=== PATIENT | male | born 1960 | race Caucasian/White ===

== ENCOUNTER 2020-05-11 18:01 | Observation (INO) ==
[2020-05-11] MEDS ORDERED: Acetaminophen 325 MG TABLET PO PRN (19:57)
[2020-05-11] MEDS ORDERED: Naloxone 0.4 MG/ML INJ IVP PRN (19:57)
[2020-05-11] MEDS ORDERED: Dextrose Gel 15 GM/37.5 ML TUBE PO PRN ×2 (20:00)
[2020-05-11] MEDS ORDERED: *HR* HYDROmorphone PF 0.5 MG/0.5 ML SYRINGE IVP PRN (20:00)
[2020-05-11] MEDS ORDERED: *HR* Dextrose 50 % in Water (Vial) 50 ML VIAL IVP PRN (20:00)
[2020-05-11] MEDS ORDERED: D5% in Water 1,000 ML IVC PRN (20:00)
[2020-05-11] MEDS ORDERED: *HR* Promethazine 25 MG/ML VIAL IVP PRN (20:14)
[2020-05-11] MEDS: Ondansetron 4 MG/2 ML VIAL IVP PRN (20:20)
[2020-05-11] MEDS: 0.9 % Sodium Chloride 1,000 ML IVC SCH (20:21)
[2020-05-11] MEDS: Insulin LISPRO 300 UNITS/3 ML VIAL SQ SCH (23:29)
[2020-05-12] MEDS: 0.9 % Sodium Chloride 1,000 ML IVC SCH ×3 (05:21→21:50)
[2020-05-12] MEDS: Ondansetron 4 MG/2 ML VIAL IVP PRN ×3 (05:21→21:56)
[2020-05-12] MEDS: Pantoprazole 40 MG VIAL IVP SCH ×2 (05:21→17:35)
[2020-05-12 05:32] LABS: Basophils # 0.1 K/mcL (0.0-0.2); Basophils % 0.9 %; Eosinophils # 0.1 K/mcL (0.0-0.6); Eosinophils % 1.1 %; Hematocrit 38.2 % (37.5-50.1); Hemoglobin 12.5 g/dL (12.9-16.9); Immature Granulocytes % 0.3 % (0-4); Lymphocytes # 2.9 K/mcL (0.6-4.6); Lymphocytes % 32.5 %; Mean Corpuscular HGB Conc 32.7 g/dL (31.6-35.5); Mean Corpuscular Volume 88.6 fL (83.0-100.0); Mean Platelet Volume 10.3 fL (9.4-12.4); Monocytes # 0.9 K/mcL (0.0-1.3); Neutrophils # 4.9 K/mcL (1.6-8.9); Platelet Count 209 K/mcL (140-400); Red Blood Count 4.31 M/mcL (4.19-5.50); Red Cell Distribution Width 14.6 % (11.5-14.5); Segmented Neutrophils % 55.2 %; White Blood Count 8.8 K/mcL (4.3-11.1)
[2020-05-12 05:34] LABS: INR 1.2; Prothrombin Time 13.9 Seconds (9.4-12.1)
[2020-05-12 05:50] LABS: BUN/Creatinine Ratio 17 (6-26); Blood Urea Nitrogen 13 mg/dL (6-20); Calcium 8.3 mg/dL (8.6-10.3); Carbon Dioxide 21 mEq/L (23-29); Chloride 105 mEq/L (98-107); Glucose 113 mg/dL (70-105); Magnesium 1.7 mg/dL (1.6-2.6); Osmolality,Calculated 285 (280-300); Phosphorous 2.4 mg/dL (2.7-4.5); Potassium 3.8 mEq/L (3.5-5.1); Sodium 137 mEq/L (136-145); eGFR For African Americans > 60 (> 60); eGFR For Non-African Americans > 60 (> 60)
[2020-05-12] MEDS: Insulin LISPRO 300 UNITS/3 ML VIAL SQ SCH ×3 (08:37→17:27)
[2020-05-12 09:58] LABS: Estimated Average Glucose 134 mg/dl
[2020-05-12] MEDS ORDERED: Insulin DETEMIR 100 UNIT/ML X5UNITS SQ SCH (21:00)
[2020-05-13] MEDS: Pantoprazole 40 MG VIAL IVP SCH ×2 (05:40→18:52)
[2020-05-13] MEDS: Insulin LISPRO 300 UNITS/3 ML VIAL SQ SCH ×3 (08:25→16:06)
[2020-05-13 09:07] LABS: Basophils # 0.1 K/mcL (0.0-0.2); Basophils % 0.8 %; Eosinophils # 0.2 K/mcL (0.0-0.6); Eosinophils % 2.8 %; Hematocrit 42.7 % (37.5-50.1); Hemoglobin 13.4 g/dL (12.9-16.9); Immature Granulocytes % 0.3 % (0-4); Lymphocytes # 1.6 K/mcL (0.6-4.6); Lymphocytes % 21.1 %; Mean Corpuscular HGB Conc 31.4 g/dL (31.6-35.5); Mean Corpuscular Hemoglobin 28.2 pg (28.0-33.3); Mean Corpuscular Volume 89.9 fL (83.0-100.0); Mean Platelet Volume 10.3 fL (9.4-12.4); Monocytes # 0.7 K/mcL (0.0-1.3); Monocytes % 9.4 %; Neutrophils # 5.1 K/mcL (1.6-8.9); Platelet Count 212 K/mcL (140-400); Red Blood Count 4.75 M/mcL (4.19-5.50); Red Cell Distribution Width 14.6 % (11.5-14.5); Segmented Neutrophils % 65.6 %; White Blood Count 7.8 K/mcL (4.3-11.1)
[2020-05-13] MEDS: 0.9 % Sodium Chloride 1,000 ML IVC SCH ×2 (09:12→21:31)
[2020-05-13 09:27] LABS: BUN/Creatinine Ratio 11 (6-26); Blood Urea Nitrogen 9 mg/dL (6-20); Calcium 8.7 mg/dL (8.6-10.3); Carbon Dioxide 24 mEq/L (23-29); Chloride 106 mEq/L (98-107); Glucose 131 mg/dL (70-105); Lipase 6 Units/L (11-82); Osmolality,Calculated 288 (280-300); Potassium 3.7 mEq/L (3.5-5.1); Sodium 139 mEq/L (136-145); eGFR For African Americans > 60 (> 60); eGFR For Non-African Americans > 60 (> 60)
[2020-05-13] MEDS: Ondansetron 4 MG/2 ML VIAL IVP PRN ×2 (12:53→21:30)
[2020-05-14] MEDS: Pantoprazole 40 MG VIAL IVP SCH (05:37)
[2020-05-14 08:27] VITALS: BP 143/86
[2020-05-14] MEDS: Ondansetron 4 MG/2 ML VIAL IVP PRN (08:41)
[2020-05-14] MEDS: Insulin LISPRO 300 UNITS/3 ML VIAL SQ SCH (08:51)
== END 2020-05-14 10:30 | disposition home or self-care (01) ==
LOC: 3ANU → SUATTDRO 19:26
PROVIDERS: ADMIT Student in an Organized Health Care Education/Training Program; ATTEND Family Medicine

== ENCOUNTER 2022-03-03 09:55 | Observation (INO) ==
[2022-03-03] MEDS ORDERED: 0.9 % Sodium Chloride 1,000 ML IVC ONE (11:33)
[2022-03-03] MEDS ORDERED: Ondansetron 4 MG/2 ML VIAL IVP ONE (11:33)
[2022-03-03] MEDS ORDERED: Haloperidol Lactate 5 MG/ML VIAL IVP ONE (11:42)
[2022-03-03 11:52] LABS: Basophils % 0.4 %; Hematocrit 44.8 % (37.5-50.1); Hemoglobin 14.5 g/dL (12.9-16.9); Immature Granulocytes % 0.3 % (0-4); Lymphocytes # 0.8 K/mcL (0.6-4.6); Lymphocytes % 7.9 %; Mean Corpuscular HGB Conc 32.4 g/dL (31.6-35.5); Mean Corpuscular Hemoglobin 28.4 pg (28.0-33.3); Mean Corpuscular Volume 87.8 fL (83.0-100.0); Mean Platelet Volume 10.4 fL (9.4-12.4); Monocytes # 0.3 K/mcL (0.0-1.3); Monocytes % 3.4 %; Neutrophils # 8.5 K/mcL (1.6-8.9); Platelet Count 301 K/mcL (140-400); Red Cell Distribution Width 14.9 % (11.5-14.5); White Blood Count 9.7 K/mcL (4.3-11.1)
[2022-03-03 12:12] LABS: Alanine Aminotransferase 15 Units/L (7-52); Albumin 4.2 g/dL (3.5-5.7); Albumin/Globulin Ratio 1.1 (1.1-2.2); Alkaline Phosphatase 87 Units/L (34-104); Aspartate Amino Transferase 15 Units/L (13-39); BUN/Creatinine Ratio 19 (6-26); Bilirubin,Direct 0.2 mg/dL (0.0-0.2); Bilirubin,Indirect 0.9 mg/dL (0.0-1.0); Bilirubin,Total 1.1 mg/dL (0.3-1.0); Blood Urea Nitrogen 19 mg/dL (8-23); Carbon Dioxide 24 mEq/L (23-29); Chloride 99 mEq/L (98-107); Globulin 3.8 g/dL (2.4-3.5); Glucose 200 mg/dL (70-105); Lipase 5 Units/L (11-82); Osmolality,Calculated 288 (280-300); Potassium 4.2 mEq/L (3.5-5.1); Sodium 135 mEq/L (136-145); eGFR For African Americans > 60 (> 60); eGFR For Non-African Americans > 60 (> 60)
[2022-03-03] MEDS ORDERED: *HR* Promethazine 25 MG/ML VIAL IM ONE (12:14)
[2022-03-03 12:18] LABS: Troponin I < 0.03 ng/mL (< 0.04)
[2022-03-03] MEDS ORDERED: 0.9 % Sodium Chloride 1,000 ML IV ONE (13:52)
[2022-03-03] MEDS ORDERED: Pantoprazole 40 MG VIAL IVP ONE (14:11)
[2022-03-03 14:17] LABS: Bilirubin,Urine Negative (Negative); Blood,Urine Negative (Negative); Clarity,Urine Clear (Clear); Color,Urine Yellow (Yellow); Glucose,Urine (UA) 50 mg/dL (Normal); Ketones,Urine >150 mg/dL (Negative); Leukocyte Esterase,Urine Negative (Negative); Mucus,Urine Few per lpf (None-Few); Nitrite,Urine Negative (Negative); Protein,Urine 50 mg/dL (Neg-Trace); Specific Gravity,Urine > 1.030 (1.010-1.025); Squamous Epithelial Cell,Urine Few per hpf (None-Few); WBC,Urine 0-3 per hpf (0-3)
[2022-03-03] MEDS ORDERED: *HR* Dextrose 50 % in Water (Syg) 50 ML SYRINGE IVP PRN (14:26)
[2022-03-03] MEDS ORDERED: Dextrose Gel 15 GM/37.5 ML TUBE PO PRN ×2 (14:26)
[2022-03-03] MEDS ORDERED: D5% in Water 1,000 ML IVC PRN (14:26)
[2022-03-03] MEDS ORDERED: Naloxone 0.4 MG/ML INJ IVP PRN (14:27)
[2022-03-03] MEDS ORDERED: *HR* Promethazine 25 MG/ML VIAL IM PRN (14:39)
[2022-03-03] MEDS: Ondansetron ODT 4 MG TAB.RAPDIS SL PRN (17:25)
[2022-03-03] MEDS: Insulin LISPRO 300 UNITS/3 ML VIAL SUBQ SCH ×2 (17:26→20:57)
[2022-03-03] MEDS: Ringers Solution, Lactated 1,000 ML IVC SCH (17:27)
[2022-03-03] MEDS: Pantoprazole 40 MG VIAL IVP SCH (21:07)
[2022-03-04 03:37] LABS: BUN/Creatinine Ratio 21 (6-26); Blood Urea Nitrogen 16 mg/dL (8-23); Calcium 8.1 mg/dL (8.6-10.3); Carbon Dioxide 18 mEq/L (23-29); Chloride 105 mEq/L (98-107); Glucose 132 mg/dL (70-105); Magnesium 1.7 mg/dL (1.6-2.6); Osmolality,Calculated 283 (280-300); Phosphorous 2.3 mg/dL (2.7-4.5); Potassium 4.1 mEq/L (3.5-5.1); Sodium 135 mEq/L (136-145); eGFR For African Americans > 60 (> 60); eGFR For Non-African Americans > 60 (> 60)
[2022-03-04] MEDS: Ringers Solution, Lactated 1,000 ML IVC SCH (03:40)
[2022-03-04] MEDS: Ondansetron ODT 4 MG TAB.RAPDIS SL PRN (03:43)
[2022-03-04 04:37] LABS: Basophils % 0.3 %; Hematocrit 39.4 % (37.5-50.1); Hemoglobin 13.2 g/dL (12.9-16.9); Immature Granulocytes % 0.8 % (0-4); Lymphocytes # 1.7 K/mcL (0.6-4.6); Lymphocytes % 10.6 %; Mean Corpuscular HGB Conc 33.5 g/dL (31.6-35.5); Mean Corpuscular Hemoglobin 28.9 pg (28.0-33.3); Mean Corpuscular Volume 86.4 fL (83.0-100.0); Mean Platelet Volume 10.3 fL (9.4-12.4); Monocytes # 1.6 K/mcL (0.0-1.3); Monocytes % 10.3 %; Neutrophils # 12.4 K/mcL (1.6-8.9); Platelet Count 263 K/mcL (140-400); Red Blood Count 4.56 M/mcL (4.19-5.50); White Blood Count 15.9 K/mcL (4.3-11.1)
[2022-03-04 04:38] LABS: Basophils # 0.1 K/mcL (0.0-0.2)
[2022-03-04] MEDS: Insulin LISPRO 300 UNITS/3 ML VIAL SUBQ SCH ×4 (10:17→21:46)
[2022-03-04] MEDS: Pantoprazole 40 MG VIAL IVP SCH ×2 (10:22→21:23)
[2022-03-04] MEDS ORDERED: *HR* HYDROmorphone PF 0.5 MG/0.5 ML SYRINGE IVP PRN (12:34)
[2022-03-04] MEDS ORDERED: Nitroglycerin 0.4 MG TAB.SUBL SL PRN (12:34)
[2022-03-04] MEDS ORDERED: *HR* FentaNYL (PF) 100 MCG/2 ML VIAL IVP PRN (12:34)
[2022-03-04] MEDS ORDERED: Albuterol 2.5 MG/3 ML NEBULIZER IH PRN (12:34)
[2022-03-04] MEDS ORDERED: *HR* Metoprolol 5 MG/5 ML VIAL IVP PRN (12:34)
[2022-03-04] MEDS ORDERED: Ondansetron 4 MG/2 ML VIAL IVP PRN (12:34)
[2022-03-04] MEDS ORDERED: Naloxone 0.4 MG/ML INJ IVP PRN (12:34)
[2022-03-04] MEDS ORDERED: *HR* Succinylcholine 200 MG/10 ML VIAL IVP ONE (12:48)
[2022-03-04] MEDS ORDERED: *HR* Propofol 200 MG/20 ML VIAL IVP ONE (12:48)
[2022-03-04] MEDS ORDERED: Lidocaine -MPF 2% 5 ML VIAL ONE (12:48)
[2022-03-04] MEDS: 0.9 % Sodium Chloride 1,000 ML IVC SCH (13:02)
[2022-03-04] MEDS ORDERED: *HR* FentaNYL (PF) 100 MCG/2 ML VIAL ONE (13:05)
[2022-03-04] MEDS ORDERED: Ondansetron 4 MG/2 ML VIAL ONE ×2 (13:28→13:29)
[2022-03-04] MEDS ORDERED: Insulin DETEMIR 100 UNIT/ML X5UNITS SUBQ ONE (23:18)
[2022-03-05 02:54] LABS: Basophils % 0.2 %; Hemoglobin 12.7 g/dL (12.9-16.9); Immature Granulocytes % 0.4 % (0-4); Lymphocytes # 1.5 K/mcL (0.6-4.6); Lymphocytes % 10.8 %; Mean Corpuscular HGB Conc 32.6 g/dL (31.6-35.5); Mean Corpuscular Hemoglobin 28.3 pg (28.0-33.3); Mean Corpuscular Volume 87.1 fL (83.0-100.0); Mean Platelet Volume 10.6 fL (9.4-12.4); Monocytes # 1.1 K/mcL (0.0-1.3); Monocytes % 8.1 %; Neutrophils # 10.8 K/mcL (1.6-8.9); Platelet Count 262 K/mcL (140-400); Red Blood Count 4.48 M/mcL (4.19-5.50); Segmented Neutrophils % 80.5 %; White Blood Count 13.4 K/mcL (4.3-11.1)
[2022-03-05 03:08] LABS: BUN/Creatinine Ratio 15 (6-26); Blood Urea Nitrogen 13 mg/dL (8-23); Calcium 8.6 mg/dL (8.6-10.3); Carbon Dioxide 26 mEq/L (23-29); Chloride 103 mEq/L (98-107); Glucose 144 mg/dL (70-105); Magnesium 1.7 mg/dL (1.6-2.6); Osmolality,Calculated 285 (280-300); Phosphorous 1.8 mg/dL (2.7-4.5); Potassium 4.1 mEq/L (3.5-5.1); Sodium 136 mEq/L (136-145); eGFR For African Americans > 60 (> 60); eGFR For Non-African Americans > 60 (> 60)
[2022-03-05 07:58] VITALS: BP 151/90; PULSE 55; TEMP 98.2; O2SAT 98
[2022-03-05] MEDS: Insulin LISPRO 300 UNITS/3 ML VIAL SUBQ SCH (07:58)
[2022-03-05] MEDS ORDERED: Sucralfate 1 GM TABLET PO SCH (08:00)
[2022-03-05] MEDS: Pantoprazole 40 MG VIAL IVP SCH (08:36)
[2022-03-05] MEDS: 0.9 % Sodium Chloride 1,000 ML IVC SCH (08:37)
== END 2022-03-05 10:27 | disposition home or self-care (01) ==
LOC: EMEROOARM 09:55 → 3ANU 09:55 → SUATTDRO 14:21 → 3ANU 16:13
PROVIDERS: ADMIT General Practice; ATTEND Internal Medicine